=== PATIENT | female | born 1965 ===

== ENCOUNTER 2019-10-19 10:05 | Emergency (ER) | payer BC, OTHER ==
--- NOTE | 2019-10-19 10:44 | ED ---
Complex/Multi-Sys Presentation - HPI Summary HPI Summary: Patient is a 54 y/o F presenting to [facility] for complaints of pain at her thyroid area with palpation, elevated BP, and intermittent palpitations. 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 She takes Thyronorm. Patient additionally states that she noted an elevated BP of 150/90s yesterday. She has been having palpations that are characterized as a racing sensation. Patient is on amlodapine. Patient denies difficulty swallowing, fever, vomiting and diarrhea. She notes that she feels gaseous. Patient denies similar previous episodes of Sx. No PMHx otherwise noted. NKDA reported. PSHx of cholecystectomy reported. She is a non-smoker and denies alcohol and substance usage. Patient states that she is from [facility] and came to the [place] in June 2019. - History Of Current Complaint Chief Complaint: EDDysrhythmPalp Time Seen by Provider: 10/19/19 10:12 Hx Obtained From: Patient Onset/Duration: Still Present Timing: Intermittent, Lasting: - palpitations Location: Pain At: - thyroid area Associated Signs And Symptoms: Positive: Palpitations, Other - positive - pain at thyroid area, elevated BP; negative - difficulty swallowing. Negative: Vomiting, Diarrhea, Fever - Allergies/Home Medications Allergies/Adverse Reactions: Allergies Allergy/AdvReac Type Severity Reaction Status Date / Time No Known Allergies Allergy Verified 12/26/13 10:47 Home Medications: Home Medications Amlodipine Besylate 5 mg PO DAILY 12/26/13 [History Confirmed 12/26/13] Losartan TAB* [Cozaar TAB*] 50 mg PO DAILY 12/26/13 [History Confirmed 12/26/13] Magnesium Oxide TAB* [MagOx 400 TAB*] 400 mg PO DAILY 7 Days #7 tab 10/19/19 [Rx ] PMH/Surg Hx/FS Hx/Imm Hx Endocrine/Hematology History: Reports: Hx Thyroid Disease Denies: Hx Diabetes Cardiovascular History: Reports: Hx Hypertension Respiratory History: Denies: Hx Asthma, Hx Chronic Obstructive Pulmonary Disease (COPD) GI History: Denies: Hx Ulcer - Surgical History Surgery Procedure, Year, and Place: maría 1997. thyroid 2002. csection Infectious Disease History: No Infectious Disease History: Denies: Hx Clostridium Difficile, Hx Hepatitis, Hx Human Immunodeficiency Virus (HIV), Hx of Known/Suspected MRSA, Hx Shingles, Hx Tuberculosis, Traveled Outside the [place] in Last 30 Days - Family History Known Family History: Negative: Cardiac Disease, Hypertension, Diabetes - Social History Alcohol Use: None Substance Use Type: Reports: None Review of Systems Negative: Fever ENT: Other - negative - difficulty swallowing Positive: Palpitations, Other - elevated BP Negative: Vomiting, Diarrhea Musculoskeletal: Other - pain at thyroid area with palpation All Other Systems Reviewed And Are Negative: Yes Physical Exam - Summary Physical Exam Summary: Constitutional: Well-developed, Well-nourished, Alert. (-) Distressed Skin: Warm, Dry; Thyroidectomy scar present, no masses appreciated HENT: Normocephalic; Atraumatic Eyes: Conjunctiva normal Neck: Musculoskeletal ROM normal neck. (-) JVD, (-) Stridor, (-) Tracheal deviation Cardio: Rhythm regular, rate normal, Heart sounds normal; Intact distal pulses; Radial pulses are 2+ and symmetric. (-) Murmur Pulmonary/Chest wall: Effort normal. (-) Respiratory distress, (-) Wheezes, (-) Rales Abd: Soft, (-) tenderness, (-) Distension, (-) Guarding, (-) Rebound Musculoskeletal: (-) Edema Lymph: (-) Cervical adenopathy Neuro: Alert, Oriented x3 Psych: Mood and affect Normal Triage Information Reviewed: Yes Vital Signs On Initial Exam: Initial Vitals Temp Pulse Resp BP Pulse Ox 99.6 F 93 18 172/112 95 10/19/19 10:07 10/19/19 10:07 10/19/19 10:07 10/19/19 10:07 10/19/19 10:07 Vital Signs Reviewed: Yes Procedures - Sedation Patient Received Moderate/Deep Sedation with Procedure: No Diagnostics - Vital Signs Vital Signs Temp Pulse Resp BP Pulse Ox 10/19/19 10:07 99.6 F 93 18 172/112 95 - Laboratory Result Diagrams: 10/19/19 11:14 10/19/19 11:14 Lab Statement: Any lab studies that have been ordered have been reviewed, and results considered in the medical decision making process. - EKG 1038 Cardiac Rate: NL - rate of 87 BPM EKG Rhythm: Sinus Rhythm Summary of EKG Findings: EKG showed NSR with rate of 87 BPM, T-wave inversion in lead III, no STEMI. ED physician has reviewed and interpreted this EKG. Complex Multi-Symp Course/Dx Course Of Treatment: Patient is here with nondescript pain in her right neck with pushing on her neck and feeling of palpitations. Patient was near recent hematocrit on arrival. Patient is [place] the country from [facility] and primary care doctor. Patient had blood work performed which was grossly unremarkable including thyroid studies. Patient was given [facility] referral for primary care follow-up. - Diagnoses Provider Diagnoses: Palpitations - Critical Care Time Critical Care Statement: Critical care time is provided exclusive of any time spent performing procedures. Discharge ED - Sign-Out/Discharge Documenting (check all that apply): Patient Departure - discharge - Discharge Plan Condition: Stable Disposition: HOME Prescriptions: Magnesium Oxide TAB* [MagOx 400 TAB*] 400 mg PO DAILY 7 Days #7 tab Patient Education Materials: Heart Palpitations (ED) Referrals: [facility] [Outside] Additional Instructions: CALL THE [facility] TO BE ESTABLISHED WITH A PRIMARY CARE PHYSICIAN. RETURN FOR SEVERE CHEST PAIN, PALPITATIONS, OR ANY OTHER CONCERNING SYMPTOMS. - Billing Disposition and Condition Condition: STABLE Disposition: Home - Attestation Statements Document Initiated by Scribe: Yes Documenting Scribe: FAVIO DOUGLAS Provider For Whom Scribe is Documenting (Include Credential): JACINTO GARDINER MD Scribe Attestation: FAVIO Eledr, scribed for JACINTO GARDINER MD on 10/19/19 at 1612. Scribe Documentation Reviewed: Yes Provider Attestation: The documentation as recorded by the FAVIO french accurately reflects the service I personally performed and the decisions made by me, JACINTO GARDINER MD Status of Scribe Document: Viewed
[2019-10-19 11:28] LABS: ABS Lymphocytes 0.9 10^3/ul (1.0-4.8); ABS Monocytes 0.2 10^3/ul (0-0.8); ABS Neutrophils 3.8 10^3/ul (1.5-7.7); Eosinophil % 0.5 %; Hematocrit 39 % (35-47); Hemoglobin 13.5 g/dL (12.0-16.0); Lymphocyte % 18.1 %; Mean Corpuscular HGB Conc 35 g/dL (31-36); Mean Corpuscular Hemoglobin 32 pg (27-31); Mean Corpuscular Volume 92 fL (80-97); Mean Platelet Volume 7.8 fL (7.4-10.4); Nucleated Red Blood Cells % 0.1; Platelet Count 178 10^3/uL (150-450); Red Blood Count 4.19 10^6 /uL (3.70-4.87); Red Cell Distribution Width 12 % (10-15)
[2019-10-19 11:43] LABS: Albumin 4.4 g/dL (3.2-5.2); Albumin/Globulin Ratio 1.3 (1-3); BUN/Creatinine Ratio 14.1 (8-20); Calcium 9.4 mg/dL (8.6-10.3); EGFR African American 104.6 (>60); EGFR Non-African American 86.4 (>60); Globulin 3.3 g/dL (2-4); Magnesium 1.8 mg/dL (1.9-2.7); Potassium 3.4 mmol/L (3.5-5.0); Total Bilirubin 0.5 mg/dL (0.2-1.0); Total Protein 7.7 g/dL (6.4-8.9)
[2019-10-19 11:44] LABS: Troponin I 0.01 ng/mL (<0.03)
[2019-10-19] MEDS ORDERED: Magnesium Oxide TAB* 400 MG PO ONE (12:02)
[2019-10-19 12:17] LABS: TSH (Thyroid Stimulating Horm) 1.3 mcIU/mL (0.34-5.60)
[2019-10-19 12:58] VITALS: BP 136/92
== END 2019-10-19 12:57 | disposition home or self-care (01) ==
LOC: ED 10:05
DX: R00.2 Palpitations (principal); E89.0 Postprocedural hypothyroidism; I10 Essential (primary) hypertension; Z79.899 Other long term (current) drug therapy
CPT/HCPCS: 36415; 80053; 83735; 84439; 84443; 84484; 85025; 93005; 99283